=== PATIENT | male | born 1995 ===

== ENCOUNTER 2025-08-15 06:22 | Day surgery (SDC) | payer BC, SELFPAY ==
[2025-08-15] VITALS (10 sets, daily range): BP systolic 111–131; BP diastolic 29–98; BMI 26.7
[2025-08-15] MEDS: NORMOSOL-R/PLASMALYTE-A 1000 IV (08:12)
[2025-08-15] MEDS: ZOFRAN 4 MG IV (10:46)
== END 2025-08-15 12:25 | disposition home or self-care (01) ==
LOC: SDS 06:22
PROVIDERS: ATTENDING PHYSICIAN Otolaryngology
DX: J34.2 Deviated nasal septum (principal); J34.3 Hypertrophy of nasal turbinates
CPT/HCPCS: 30520; 30802